=== PATIENT | female | born 1990 | race African-American/Black ===

== ENCOUNTER 2018-01-01 14:28 | Emergency (ER) | payer SELFPAY ==
[~2018-01-01] VITALS: Ht 162.6 cm; Wt 65.2 kg
[2018-01-01 14:58] LABS: HEMATOCRIT 39.4 % (36.0-46.0); HEMOGLOBIN 13.2 G/DL (11.9-15.5); MCH 30.3 PG (29.0-34.0); MCHC 33.5 G/DL (30.0-36.0); MCV 90.4 FL (83-99); PLATELET COUNT 236 K/uL (156-360); RBC DIS.WIDTH-CV 11.9 % (11.8-14.6); RBC DIS.WIDTH-SD 39.6 % (39-53); RED BLOOD COUNT 4.36 M/uL (3.80-5.20); WHITE BLOOD COUNT 5.5 K/uL (4.1-10.2)
[2018-01-01 15:10] LABS: ALBUMIN 4.4 g/dL (3.2-4.8); CHLORIDE 106 mEq/L (99-109); POTASSIUM 4.2 mEq/L (3.7-5.4); SODIUM 140 mEq/L (136-147)
[2018-01-01 15:12] LABS: GLUCOSE 80 mg/dL (70-99); TOTAL PROTEIN 7.3 g/dL (6.4-8.3)
[2018-01-01 15:14] LABS: TOTAL BILIRUBIN 0.6 mg/dL (0.0-1.0)
[2018-01-01 15:16] LABS: ALKALINE PHOSPHATASE 66 IU/L (3-129); CREATININE 0.7 mg/dL (0.6-1.3)
[2018-01-01 15:17] LABS: UREA NITROGEN (BUN) 14 mg/dL (9-23)
[2018-01-01 15:17] LABS: APPEARANCE SL.HAZY ((CLEAR)); BILIRUBIN NEGATIVE; BLOOD NEGATIVE; COLOR YELLOW ((YELLOW)); GLUCOSE (STRIP) NEGATIVE; KETONES NEGATIVE; LEUKOCYTES MODERATE; NITRITE NEGATIVE; PROTEIN (STRIP) NEGATIVE; SPECIFIC GRAVITY 1.027 (1.000-1.030)
[2018-01-01 15:18] LABS: AST (GOT) 19 IU/L (2-34)
[2018-01-01 15:19] LABS: ALT (GPT) 17 IU/L (3-49)
[2018-01-01 15:21] LABS: GFR ESTIMATE (CALCULATED) > 59 mL/min/
[2018-01-01 15:21] LABS: BACTERIA RARE /HPF; EPITHELIAL CELLS 1+ /HPF; MUCUS TRACE /LPF; RED BLOOD CELLS 0-5 /HPF (0-5); UCUL ADDED? YES
[2018-01-01 15:25] LABS: LIPASE 56 U/L (1.0-51.0)
[2018-01-01 15:26] LABS: QUANTITATIVE HCG < 4.0 MIU/ML
[2018-01-01 15:56] LABS: SOURCE SWAB
[2018-01-01] MEDS ORDERED: MONODOX100 MG PO (16:29)
[2018-01-01] MEDS ORDERED: MOTRIN600 MG PO (16:29)
[2018-01-01 16:50] VITALS: BP 127/90
== END 2018-01-01 16:51 | disposition home or self-care (01) ==
LOC: EME 14:28
PROVIDERS: Emergency Medicine
DX: N73.9 Female pelvic inflammatory disease, unspecified (principal)
CPT/HCPCS: 80053; 81003; 83690; 84702; 85027; 87070; 87086; 87210; 87491; 87591; 99281; 99284; J0696